=== PATIENT | female | born 1960 | race Caucasian/White ===

== ENCOUNTER 2019-01-26 12:31 | Emergency (ER) | payer BC ==
[~2019-01-26] VITALS: Ht 160 cm; Wt 83.4 kg
[~2019-01-26 12:31] MED LIST: CEPH-443 PO
[2019-01-26 12:49] VITALS: Ht 160 cm; Wt 83.4 kg
[2019-01-26 15:14] VITALS: BP 158/78; PULSE 78; RESP 18
== END 2019-01-26 15:15 | disposition home or self-care (01) ==
LOC: FTE 12:31
DX: N39.0 Urinary tract infection, site not specified (principal)
CPT/HCPCS: 36415; 72100; 76830; 76856; 80053; 81001; 83690; 85025; Z7502